=== PATIENT | female | born 1995 | race Two or more races ===

== ENCOUNTER 2020-03-01 06:50 | Day surgery (SDC) | payer OTHER ==
[2020-03-01] MEDS ORDERED: PROPOFOL INJ 200 MG/20 ML VIAL IV ONE (07:41)
[2020-03-01] MEDS ORDERED: LIDOCAINE 2% INJ-PF (20 MG/ML) 10 ML AMPUL ONE (07:41)
--- NOTE | 2020-03-01 08:29 | Operative Report ---
Operative Report DATE OF SURGERY: 03/01/20 Operative Report: The risks benefits and alternatives of the procedure explained to the patient in detail and informed consent is obtained.A GIF Olympus video scope was inserted into the patient's mouth and hypopharynx ,the esophagus is identified intubated and insufflated ,the scope was then advanced through the esophagus stomach and duodenum, retroflexion maneuver is done, the esophagus stomach and first and second portions of the duodenum examined PREOPERATIVE DIAGNOSIS: Epigastric pain, nausea vomiting POSTOPERATIVE DIAGNOSIS: Mild esophagitis. Hiatal hernia. Gastritis status post biopsy OPERATION: EGD with biopsy SURGEON: IGOR CONDON ANESTHESIA: LMAC TISSUE REMOVED OR ALTERED: As noted above. COMPLICATIONS: None. ESTIMATED BLOOD LOSS: None. INTRAOPERATIVE FINDINGS: As noted above. PROCEDURE: Patient tolerated the procedure well. No immediate postprocedure complications are noted. Patient is discharged in good condition. Discharge date 03/01/2020. Discharge diet: Regular. Discharge activity: Regular. 2 to 3-week follow-up to discuss findings. Patient is instructed to call the office or proceed to the emergency room should there be any further problems or questions. Wait on the pathology.
[2020-03-01 08:48] VITALS: BP 132/67
== END 2020-03-01 09:30 | disposition home or self-care (01) ==
LOC: END 06:50
PROVIDERS: ATTEND Internal Medicine Gastroenterology
DX: K29.50 Unspecified chronic gastritis without bleeding (principal); K20.9 Esophagitis, unspecified; K44.9 Diaphragmatic hernia without obstruction or gangrene; J45.20 Mild intermittent asthma, uncomplicated; Z88.0 Allergy status to penicillin
CPT/HCPCS: 43239; 88342 ×2; 88305 ×2; 00731; J2704; J3490; 731

== ENCOUNTER → 2020-03-03 | Outpatient (CLI) | payer OTHER ==
--- NOTE | 2020-03-03 10:43 | RADIOLOGY REPORT (SQ) ---
EXAM DESCRIPTION: U/S ABDOMEN LIMITED W/O DOP IMAGES COMPLETED DATE/TIME: 03/03/2020 8:28 am REASON FOR STUDY: R10.11 RIGHT UPPER QUADRANT PAIN R10.11 RIGHT UPPER QUADRANT PAIN COMPARISON: None. TECHNIQUE: Dynamic and static grayscale images acquired of the abdomen and recorded on PACS. Additio nal selected color Doppler and spectral images recorded. LIMITATIONS: None. FINDINGS: PANCREAS: The visualized portions of the pancreas appear normal. LIVER: Normal contour and echotexture of the liver. LIVER VASCULATURE: Hepatopetal directional flow in the portal veins. GALLBLADDER: The gallbladder wall measures 2.5 mm in thickness. There is no cholelithiasis, sludge o r pericholecystic fluid. ULTRASOUND-DETECTED PISANO'S SIGN: Negative. INTRAHEPATIC DUCTS AND COMMON DUCT: The common bile duct measures 4.4 mm in diameter. There is no di latation of the intrahepatic bile ducts. INFERIOR VENA CAVA: Not assessed. AORTA: No aneurysm. RIGHT KIDNEY: The right kidney measures 11.5 cm in length. The corticomedullary differentiation is preserved. There is no hydronephrosis. PERITONEAL AND RIGHT PLEURAL SPACE: No ascites or effusions. OTHER: No other findings. IMPRESSION: No abnormality of the right upper quadrant. TECHNICAL DOCUMENTATION: JOB ID: [id number] 2010 [employer]- All Rights Reserved Reading location - IP/workstation name: [email or web address]
== END ==
LOC: RAD 07:49
PROVIDERS: ATTEND Internal Medicine Gastroenterology
DX: R10.11 Right upper quadrant pain (principal)
CPT/HCPCS: 76705

== ENCOUNTER → 2020-03-04 | Outpatient (CLI) | payer OTHER ==
--- NOTE | 2020-03-04 15:03 | RADIOLOGY REPORT (SQ) ---
EXAM DESCRIPTION: NM HIDA SCAN WITH CCK IMAGES COMPLETED DATE/TIME: 03/04/2020 2:52 pm REASON FOR STUDY: R11.14 RIGHT UPPER QUADRANT PAIN R10.11 RIGHT UPPER QUADRANT PAIN COMPARISON: 03/03/2020 ultrasound RADIONUCLIDE AND DOSE: DOSAGE RADIONUCLIDE: 5.25 millicuries Tc99m Mebrofenin. DOSAGE CCK: 2.2 micrograms. DOSAGE MORPHINE: Not required. The route of agent administration: Intravenous TECHNIQUE: Serial imaging right upper quadrant up to 60 minutes following injection of radionuclide. CCK injected after gallbladder visualized. LIMITATIONS: None. FINDINGS: LIVER: Normal visualization without areas of photopenia. INTRAHEPATIC BILE DUCTS: Normal size and no delay in visualization. COMMON BILE DUCT: Normal without dilatation. GALLBLADDER: Normal visualization. Diminished calculated ejection fraction of 13%. Normal range is greater than 35%. PHYSICAL RESPONSE: Patients presenting complaint was reproduced. OTHER: No other significant finding. IMPRESSION: 1. No evidence of cystic or common duct obstruction. 2. Diminished gallbladder ejection fraction of 13% compatible with biliary dyskinesia. TECHNICAL DOCUMENTATION: JOB ID: [id number] 2010 [employer]- All Rights Reserved Reading location - IP/workstation name: [email or web address]
== END ==
LOC: RAD 12:42
PROVIDERS: ATTEND Internal Medicine Gastroenterology
DX: K82.8 Other specified diseases of gallbladder (principal); R11.14 Bilious vomiting; R10.11 Right upper quadrant pain
CPT/HCPCS: 78227; J2805; A9537; Q9969